=== PATIENT | female | born 1945 | race Caucasian/White ===

== ENCOUNTER 2021-03-07 09:23 | Day surgery (SDC) | payer MEDICARE, SELFPAY ==
--- NOTE | ~2021-03-07 | FL_ITS ---
PROCEDURE: XR LUMBAR PUNCTURE CLINICAL INFORMATION: Neuropathy. COMPARISON: None TECHNIQUE: Procedure and risks and benefits including bleeding, infection and headache were discussed with the patient and informed consent was obtained. Patient was positioned in the prone position. The lower back was prepped and draped in the usual sterile fashion. Using Fluoroscopic guidance and a 22-gauge spinal needle, right interlaminar access to the spinal canal at the L5-S1 level was obtained. No CSF fluid could be obtained. Subsequently, using a 22-gauge spinal needle, interlaminar access to the spinal canal at the L4-L5 level was obtained. 4 mL of initially slightly blood-tinged followed by clear fluid was removed. Diagnostic specimens were sent. No opening pressure was obtained due to difficulty obtaining CSF fluid. FINDINGS: There is severe scoliosis and degenerative changes of the spine. FLUOROSCOPY TIME: 3.1 minutes DOSE AREA PRODUCT: 25 Gy.cm2 SAVED FLUOROSCOPIC IMAGES: 6 FL/FL guided lumbar puncture LP IMPRESSION: Fluoroscopy-guided lumbar puncture.
[2021-03-07 10:07] VITALS: BMI 23.6
[2021-03-07 10:13] LABS: MANUAL DIFF FLAG NO
[2021-03-07 10:15] LABS: Basophils Percent Auto 0.4 % (0-2); Eosinophils Absolute Auto 0.2 X10*3/uL (0.0-0.4); Eosinophils Percent Auto 2.4 % (0-4); Hematocrit 38.1 % (37-47); Hemoglobin 13.4 g/dl (12.0-16.0); Imm Gran Abs Auto 0.01 X10*3/uL (0.00-0.03); Imm Gran Pct Auto 0.1 % (0.0-0.4); Lymphocytes Absolute Auto 1.3 X10*3/uL (1.2-4.9); Lymphocytes Percent Auto 18.7 % (20-40); Mean Corpuscular HGB Conc 35.2 g/dl (31.0-35.0); Mean Corpuscular Hemoglobin 33.2 pg (27.0-33.0); Mean Corpuscular Volume 94.3 fL (80-98); Mean Platelet Volume 9.3 fL (9.4-12.3); Monocytes Absolute Auto 0.5 X10*3/uL (0.1-1.2); Monocytes Percent Auto 8.1 % (2-11); Neutrophils Absolute Auto 4.7 X10*3/uL (2.0-8.3); Neutrophils Percent Auto 70.3 % (45-73); Platelet Count 195 X10*3/uL (160-400); Red Blood Count 4.04 X10*6/uL (4.20-5.50); Red Cell Distribution Width 11.9 % (11.0-16.0); White Blood Count 6.7 X10*3/uL (4.8-10.8)
[2021-03-07 10:21] LABS: INTERNATIONAL NORM RATIO 1.1 (0.9-1.1); Prothrombin Time 12.8 SEC (9.9-13.0)
[2021-03-07 13:16] VITALS: BP 122/72; PULSE 69; RESP 20; TEMP 37.1; O2SAT 100
--- NOTE | 2021-03-07 13:16 | HO.RADPN ---
RADIOLOGY Narrative Narrative: LP performed at right l4/5 interlaminar level. 3.5 ml initially blood tinged followed by clear CSF fluid obatined.
[2021-03-07] MEDS: Lidocaine HCl 1 % 20 ML VIAL 5 ML INFILTRATI (13:22)
[2021-03-07 13:45] VITALS: BP 134/76; PULSE 66; RESP 20; O2SAT 100
[2021-03-07 14:08] LABS: CSF Appearance Hazy; CSF Tube # 1
[2021-03-07 14:15] VITALS: BP 156/76; PULSE 79; RESP 20; O2SAT 100
[2021-03-07 14:20] LABS: Glucose CSF 55 mg/dL; Total Protein CSF 50.9 mg/dL (15-45)
[2021-03-07 14:25] LABS: Appearance CSF CLEAR; CSF Tube # 4; Color CSF COLORLESS; Neutrophils CSF 0 %; Red Blood Cell CSF 106 MM*3; White Blood Cell CSF 2 MM*3
[2021-03-07 14:26] LABS: CSF Monos 10 %; Lymphocytes CSF 90 %
[2021-03-07 14:45] VITALS: BP 145/76; PULSE 77; RESP 20; O2SAT 100
[2021-03-07 15:15] VITALS: BP 149/84; PULSE 66; RESP 20; TEMP 36.5; O2SAT 100
[2021-03-08 06:38] LABS: Oligoclonal Serum Yes
[2021-03-22 20:52] LABS: Lyme IgG CSF Immunoblot NO BANDS DETECTED; Lyme IgM CSF Immunoblot NO BANDS DETECTED
== END 2021-03-07 15:25 | disposition home or self-care (01) ==
PROVIDERS: Radiology Diagnostic Radiology; PCP Internal Medicine; Visit Provider Psychiatry & Neurology Neurology
PROC: 009U3ZZ Drainage of Spinal Canal, Percutaneous Approach (ICD-10-PCS; CPT 62270; principal; 2021-03-07 12:00)
DX: G62.9 Polyneuropathy, unspecified (principal); J44.9 Chronic obstructive pulmonary disease, unspecified; Z79.899 Other long term (current) drug therapy
CPT/HCPCS: 36415; 62328; 82945; 83916; 84157; 85025; 85610; 85730; 86617; 87015; 87070; 87205; 89051